=== PATIENT | male | born 1985 | race Caucasian/White ===

== ENCOUNTER 2017-11-13 22:24 | Emergency (ER) | payer MEDICARE, MEDICAID, SELFPAY ==
[2017-11-13 22:25] VITALS: BP 126/89; PULSE 117; RESP 29; TEMP 36.3; O2SAT 99; BMI 25.0
--- NOTE | 2017-11-13 22:31 | EKG12_ITS ---
Test Reason : Blood Pressure : / mmHG Vent. Rate : 111 BPM Atrial Rate : 111 BPM P-R Int : 096 ms QRS Dur : 080 ms QT Int : 304 ms P-R-T Axes : 062 066 074 degrees QTc Int : 413 ms Sinus tachycardia with short UT Otherwise normal ECG Confirmed by JOE ORDAZ, JONATHON ([id number]), tape editor BRADY FAYE ([id number] on 11/16/2017 3:16:48 PM Referred By: ELGIN Confirmed By:JONATHON DIAZ MD
--- NOTE | 2017-11-13 22:47 | ED.VISSUMM ---
- ER Visit Summary Date of Service: 11/13/17 Chief Complaint: Shortness of breath History of Present Illness: The patient is a 32 M hx of asthma. States he was walking today and start her wheezing became short of breath. He was treated for similar episode 2 days ago at [facility] and currently is on prednisone. He states his insurance will not cover for him to get an inhaler filled. Discharge she denies any fever or cough. Denies any melena. No history of DVT or PE and no risk factors. No hemoptysis. No leg or calf swelling or pain. Physical Examination: Signs are stable and afebrile. He does not look septic or toxic. Pulse ox is 9 9% on room air no signs of hypoxia. HEENT exam unremarkable. Neck nontender no JVD no lymphadenopathy. Lungs few scattered wheezes. But clear and symmetrical bilaterally. Heart tachycardic about 110. No murmur. Abdomen is soft and nontender. Normal bowel sounds no peritoneal signs. Moving all 4 extremities. Neurovascularly intact. Calves nontender without edema or cords. Normal range of motion. Neurologic exam normal. Test Results: Nursing protocol ordered an EKG which was a sinus tachycardia rate of 111 with no acute signs of dysrhythmia or ischemia. Emergency Department Course and Treatment: Patient treated with DuoNeb aerosol and a Proventil inhaler 2 puffs. Repeat exam at 2318 the patient's breathing much easier. Currently he has no wheezing on repeat exam and he will be discharged to home. Treatment Plan: Discharge to home. Continue prednisone. Use his inhaler 2 puffs every 2-4 hours as needed. Disposition: Discharge Impression: Acute exacerbation of asthma This note was generated with [employer] dictation software. It may contain incorrect words, spelling, and punctuation that were not noted in review of the chart prior to signing ED Disposition - Plan for ED Patient: Chief Complaint: Shortness of Breath Referrals: Care Physician,No Primary [Primary Care Provider] -
[2017-11-13] MEDS: Ipratropium/Albuterol Sulfate 3 ML AMPUL.NEB INHALATION (22:56)
[2017-11-13 22:57] VITALS: PULSE 112; RESP 20
--- NOTE | 2017-11-13 23:20 | ED.DEP ---
ED Disposition - Plan for ED Patient: Disposition: Home or Assisted Living Chief Complaint: Shortness of Breath Instructions: Understanding Asthma Referrals: Hang Carrera MD [STAFF PHYSICIAN] - Additional Instructions: Use your inhaler 1-2 puffs every 2-4 hours as needed. Continue your prednisone until the prescription is finished. Return if worse. Call and follow-up with a primary care physician.
[2017-11-13 23:28] VITALS: PULSE 109; O2SAT 97
== END 2017-11-13 23:28 | disposition home or self-care (01) ==
PROVIDERS: Emergency Provider Emergency Medicine
DX: J45.901 Unspecified asthma with (acute) exacerbation (principal)
CPT/HCPCS: 93005; 94640; 99282

== ENCOUNTER 2017-12-07 19:05 | Emergency (ER) | payer MEDICARE, MEDICAID, SELFPAY ==
[2017-12-07 19:06] VITALS: BP 138/79; PULSE 97; RESP 16; TEMP 36.9; O2SAT 99; BMI 26.4
--- NOTE | 2017-12-07 19:37 | ED.VISSUMM ---
- ER Visit Summary Date of Service: 12/07/17 Chief Complaint: Right knee pain History of Present Illness: The patient is a 32 M who presents with right knee pain and swelling that began yesterday. Patient states the pain began suddenly. Patient states the pain has been constant. Patient states the pain is sharp. Patient states the pain is worse with complete extension and complete flexion of his knee. Patient denies any specific trauma or injury. Patient denies any paresthesias or weakness. Patient denies any other pain. Physical Examination: Vital signs are stable. Patient is afebrile. Patient is in no acute distress. Examination of the right knee revealed tenderness over the superior medial aspect of the right knee. There is some mild edema over this area. There is no erythema or warmth noted. There is no joint effusion noted. There is no laxity appreciated. Varus and valgus stress tests were negative. Tobias's test was negative. Shaina's test is negative. Sensation was intact to light touch in the lower leg. The remaining physical exam is within normal limits. Test Results: X-rays of the right knee were obtained. There is no acute fracture or loose body noted. Treatment Plan: Patient was instructed to ice and elevate the right knee. Patient was given a prescription for Naprosyn. Patient was instructed to follow-up with his primary care physician in 7-10 days. Patient understood and was agreeable with the plan. All questions were answered. Disposition: Discharged home Impression: Right knee pain This note was generated with [employer] dictation software. It may contain incorrect words, spelling, and punctuation that were not noted in review of the chart prior to signing ED Disposition - Plan for ED Patient: Disposition: Home or Assisted Living Chief Complaint: Lower Extremity Injury Diagnosis: Right knee pain Instructions: ED Knee Pain [facility] Prescriptions: Naproxen [Naprosyn] 500 mg PO BID PRN PRN #20 tab PRN Reason: Pain Referrals: Care Physician,No Primary [Primary Care Provider] -
--- NOTE | 2017-12-07 19:40 | ED.DCSUM_ITS ---
- ER Visit Summary Date of Service: 12/07/17 Chief Complaint: Right knee pain History of Present Illness: The patient is a 32 M who presents with right knee pain and swelling that began yesterday. Patient states the pain began suddenly. Patient states the pain has been constant. Patient states the pain is sharp. Patient states the pain is worse with complete extension and complete flexion of his knee. Patient denies any specific trauma or injury. Patient denies any paresthesias or weakness. Patient denies any other pain. Physical Examination: Vital signs are stable. Patient is afebrile. Patient is in no acute distress. Examination of the right knee revealed tenderness over the superior medial aspect of the right knee. There is some mild edema over this area. There is no erythema or warmth noted. There is no joint effusion noted. There is no laxity appreciated. Varus and valgus stress tests were negative. Tobias's test was negative. Shaina's test is negative. Sensation was intact to light touch in the lower leg. The remaining physical exam is within normal limits. Test Results: X-rays of the right knee were obtained. There is no acute fracture or loose body noted. Treatment Plan: Patient was instructed to ice and elevate the right knee. Patient was given a prescription for Naprosyn. Patient was instructed to follow -up with his primary care physician in 7-10 days. Patient understood and was agreeable with the plan. All questions were answered. Disposition: Discharged home Impression: Right knee pain This note was generated with [employer] dictation software. It may contain incorrect words, spelling, and punctuation that were not noted in review of the chart prior to signing ED Disposition - Plan for ED Patient: Disposition: Home or Assisted Living Chief Complaint: Lower Extremity Injury Diagnosis: Right knee pain Instructions: ED Knee Pain [facility] Prescriptions: Naproxen [Naprosyn] 500 mg PO BID PRN PRN #20 tab PRN Reason: Pain Referrals: Care Physician,No Primary [Primary Care Provider] -
--- NOTE | 2017-12-07 20:00 | RAD_ITS ---
STUDY: X-RAY - RIGHT KNEE REASON FOR EXAM: Male, 32 years old. Pain in right knee anteriorly since yesterday. TECHNIQUE: 5 view(s) of the knee. COMPARISON: None. FINDINGS: Normal visualized distal femur. Normal visualized proximal tibia and fibula. Normal proximal tibiofibular articulation. Normal medial femorotibial compartment. Normal lateral femorotibial compartment. Normal patellofemoral articulation. The soft tissue structures are unremarkable. RAD/Knee 4 or More Views IMPRESSION: Normal x-ray examination of the knee. Electronically Signed: John Becerril MD at 20:11 EDT , Service support ,
== END 2017-12-07 21:47 | disposition home or self-care (01) ==
PROVIDERS: Emergency Provider Emergency Medicine
DX: M25.561 Pain in right knee (principal)
CPT/HCPCS: 73564; 99282

== ENCOUNTER 2018-06-18 13:27 | Emergency (ER) | payer OTHER, MEDICARE, SELFPAY ==
[2018-06-18 13:28] VITALS: BP 133/95; PULSE 101; RESP 17; TEMP 36.2; O2SAT 97; BMI 27.1
--- NOTE | 2018-06-18 14:07 | ED.DCSUM_ITS ---
- ER Visit Summary Date of Service: 06/18/18 Chief Complaint: Laceration left arm History of Present Illness: The patient is a 33 M who is right-handed presents with persistent bleeding left thumb. This occurred last today at work. He was given a finger Tourni-cot and dressing. He states he does not stop bleeding. Patient is up-to-date. He denies paresthesia, anesthesia or motor weakness. He has no other complaints Physical Examination: Vital signs noted and blood pressure is elevated little bit at 133/95. There is a 1 center laceration distal radial side of the left thumb. Presently there is no active bleeding. Sensations intact. Extension flexion abduction adduction of the thumb is intact. There is no subungual hematoma noted. Capillary refill is normal. Test Results: None Emergency Department Course and Treatment: Since the laceration is greater than 12 hours no active bleeding and minimal in size will treat with Steri-Strips Treatment Plan: Clean wound and Steri-Strips Disposition: Discharged to home Impression: 1.0 cm laceration left thumb initial encounter This note was generated with [employer] dictation software. It may contain incorrect words, spelling, and punctuation that were not noted in review of the chart prior to signing ED Disposition - Plan for ED Patient: Disposition: Home or Assisted Living Chief Complaint: Laceration Instructions: ED Laceration Small Superf No Sutr Referrals: [facility] [GROUP OF PHYSICIANS] - 2 Days for wound check
--- NOTE | 2018-06-18 14:27 | ED.RN ---
DAVID ARRIVED FOR PT'S DRUG SCREEN. INFORMED THIS NURSE THAT WHEN SHE CALLED [facility] TO FIND OUT WHAT SCREEN HE WANTED PERFORMED, HE ENDED UP DECLINING THE DRUG SCREEN ENTIRELY. DRUG TEST NOT PERFORMED MY [facility] AT THIS TIME.
== END 2018-06-18 14:49 | disposition home or self-care (01) ==
PROVIDERS: Emergency Provider Emergency Medicine
DX: S61.012A Laceration without foreign body of left thumb without damage to nail, initial encounter (principal); W45.8XXA Other foreign body or object entering through skin, initial encounter; Y93.89 Activity, other specified; Y92.89 Other specified places as the place of occurrence of the external cause; Y99.0 Civilian activity done for income or pay; Z72.0 Tobacco use
CPT/HCPCS: 99283